=== PATIENT | female | born 1965 | race Caucasian/White ===

== ENCOUNTER → 2021-08-28 02:59 | Outpatient (CLI) | payer OTHER, SELFPAY ==
[2021-08-28 17:42] LABS: SARS-CoV-2 RNA PCR Negative
== END ==
PROVIDERS: PCP Internal Medicine; Visit Provider Internal Medicine
DX: R05.9 Cough, unspecified (principal); Z20.822 Contact with and (suspected) exposure to COVID-19
CPT/HCPCS: C9803; U0003; U0005

== ENCOUNTER → 2022-05-04 10:41 | Outpatient (CLI) | payer OTHER, SELFPAY ==
--- NOTE | ~2022-05-04 | XR_ITS ---
EXAMINATION: XR chest 2V DATE: 05/04/2022 11:02 INDICATION: Cough TECHNIQUE: PA and lateral views of the chest are obtained. COMPARISON: 11/11/2019 FINDINGS: The lungs are free of acute opacities. There is no pleural effusion or pneumothorax. The ca rdiomediastinal silhouette is normal. There is mild thoracic spondylosis. Surgical clips in the right upper quadrant are likely from prior cholecystectomy. IMPRESSION: 1. No acute cardiopulmonary abnormality. Reviewed, dictated and finalized at location A.
== END ==
PROVIDERS: PCP Internal Medicine; Visit Provider Internal Medicine
DX: R05.9 Cough, unspecified (principal)
CPT/HCPCS: 71046

== ENCOUNTER → 2022-11-16 15:36 | Outpatient (CLI) | payer OTHER, SELFPAY ==
--- NOTE | ~2022-11-16 | XR_ITS ---
EXAMINATION: XR sacrum coccyx min 2V DATE: 11/16/2022 16:02 INDICATION: Sacrococcygeal disorders, not elsewhere classified. TECHNIQUE: 3 views of the sacrum and coccyx were obtained. COMPARISON: Radiographs 05/25/2014 FINDINGS: Bone alignment is normal. No fracture. The sacroiliac joints are normal. IMPRESSION: 1. Normal sacrum and coccyx. Reviewed, dictated and finalized at location A. [employer]IC[employer]
== END ==
PROVIDERS: PCP Internal Medicine; Visit Provider Internal Medicine
DX: M53.3 Sacrococcygeal disorders, not elsewhere classified (principal)
CPT/HCPCS: 72220

== ENCOUNTER 2023-01-11 00:44 | Day surgery (SDC) | payer OTHER, SELFPAY ==
[2022-12-25 14:57] VITALS: BMI 29.3
[2023-01-11 07:10] VITALS: BP 129/70; PULSE 66; RESP 16; TEMP 36; O2SAT 100; BMI 29.7
[2023-01-11] MEDS: LACTATED RINGERS 1,000 ML 150 ML IV CONT (07:21)
--- NOTE | 2023-01-11 07:50 | WPDANESEPPF ---
Anes - Initial Pre Proc Eval Procedure: Operation Date: 01/11/23 08:30 Proposed Procedures p Screening Colonoscopy - Jake Mckinnon MD Date/Time: 01/11/23 07:50 Surgeon: Jake Mckinnon MD Pre Op Diagnosis: neoplasm screening Patient Data Age: 57 Gender: F Height: 1.65 m Weight: 80.9 kg Last Vital Signs Temp 36.0 C L 01/11/23 07:10 Pulse 66 01/11/23 07:10 Resp 16 01/11/23 07:10 BP 129/70 01/11/23 07:10 Pulse Ox 100 01/11/23 07:10 O2 Del Method Room Air 01/11/23 07:10 Allergies Allergy/AdvReac Type Severity Reaction Status Date / Time No Known Allergies Allergy Verified 01/11/23 07:07 Home Medications Medication Instructions Recorded Confirmed Type cetirizine 10 mg tablet (Zyrtec) 10 mg PO DAILY PRN Allergy Symptoms 11/21/21 01/11/23 History fluticasone propionate 50 1 spray intranasal DAILY 11/21/21 01/11/23 History mcg/actuation nasal spray,suspension (Flonase Allergy Relief) atenolol 50 mg tablet 50 mg PO DAILY #90 tabs 08/27/22 01/11/23 Rx atorvastatin 20 mg tablet 20 mg PO DAILY #90 tabs 11/05/22 01/11/23 Rx aspirin 81 mg tablet,delayed 81 mg PO DAILY 11/16/22 01/11/23 History release cholecalciferol (vitamin D3) 10 10 mcg PO DAILY 11/16/22 01/11/23 History mcg (400 unit) capsule omega-3 fatty acids 1,000 mg 1,000 mg PO DAILY 11/16/22 01/11/23 History capsule rhubarb root extract 4 mg tablet 4 mg PO DAILY 11/16/22 01/11/23 History (Estroven Complete Menopause Relief) codeine 10 mg-guaifenesin 100 mg/5 10 ml PO QHS PRN cough #120 mL 11/17/22 01/11/23 Rx mL oral liquid Patient hx anesthesia problems: none Family hx anesthesia problems: none Results Review: All pre-operative results and documents have been reviewed as part of the pre-operative evaluation. [facility] Past Medical History Medical History (Updated 01/11/23 @ 07:51 by Fnin Rizzo MD) Biceps muscle tear Cigarette smoker Essential (primary) hypertension Hyperlipidemia Obesity (BMI 30.0-34.9) Surgical History Surgical History S/P right rotator cuff repair (~03/2020) Family History Family History Sibling Hypertension Father Acute myocardial infarction, Onset Age: 59 Patient's father is Other Family history of cardiovascular disease Social History Social History (Updated 11/16/22 @ 15:02 by Tessie Barger CMA) Smoking packs per day: 0.5 Smoking cigarettes per day: 10.0 Years smoked: 30 Smoking pack-years: 15.00 Smoking status: Current every day smoker Tobacco type: cigarettes Second hand tobacco smoke exposure: Yes Alcohol intake: current Alcohol use details: about 2 drinks per month Substance use: never Substance use type: does not use Lack of Transportation: No Lack of Food: Never True Current Housing: I Have Housing Concerned About Future Housing: No Difficulty Paying Gas/Electric Bills: No Difficulty Paying for Meds: No Currently Unemployed: No Education: Trade/Vocational Certificate Difficulty w/ Childcare or Family Care: No Living arrangements: with family Spiritual care concerns: No Anes - Eval Final PreProcedure Day of Procedure 01/11/23 07:50 Patient weight: obese Heart: regular rate and rhythm Lungs: clear to auscultation and normal air movement Airway: Mallampati scale class II Neurological: alert and oriented Last oral intake: >/= 8 hours ASA classification: III Emergent: no Anesthetic plan: proceed Anesthesia type and monitoring: general GIVS Results Review: All pre-operative results and documents have been reviewed as part of the pre-operative evaluation. Informed Consent: The patient's anesthetic plan and its attendant risks and benefits were discussed with the patient/family/POA. Questions were solicited and answers provided to the satisfaction of
--- NOTE | 2023-01-11 07:58 | PM.HPGS ---
History of Present Illness History of Present Illness Consent: Risks, benefits, and alternatives have been discussed and questions answered. Patient agrees to proceed with procedure. Chief complaint: neoplasm screening Narrative: Rocio Sewell is a 57 year old female Presents for screening colonoscopy. Patient's current weight appetite and bowel movements are normal. Patient denies abdominal pain. She has had no bleeding. Family history noncontributory. Previous colonoscopy 2017 was unremarkable. Review of Systems Review of Systems: Review of systems noncontributory. [facility] Past Medical History Medical History (Updated 01/11/23 @ 07:59 by Jake Mckinnon MD) Biceps muscle tear Cigarette smoker Essential (primary) hypertension Hyperlipidemia Obesity (BMI 30.0-34.9) Surgical History Surgical History S/P right rotator cuff repair (~03/2020) Family History Family History Sibling Hypertension Father Acute myocardial infarction, Onset Age: 59 Patient's father is Other Family history of cardiovascular disease Social History Social History (Updated 11/16/22 @ 15:02 by Tessie Barger CMA) Smoking packs per day: 0.5 Smoking cigarettes per day: 10.0 Years smoked: 30 Smoking pack-years: 15.00 Smoking status: Current every day smoker Tobacco type: cigarettes Second hand tobacco smoke exposure: Yes Alcohol intake: current Alcohol use details: about 2 drinks per month Substance use: never Substance use type: does not use Lack of Transportation: No Lack of Food: Never True Current Housing: I Have Housing Concerned About Future Housing: No Difficulty Paying Gas/Electric Bills: No Difficulty Paying for Meds: No Currently Unemployed: No Education: Trade/Vocational Certificate Difficulty w/ Childcare or Family Care: No Living arrangements: with family Spiritual care concerns: No Meds Home Medications and Allergies Home Medications Medication Instructions Recorded Confirmed Type cetirizine 10 mg tablet (Zyrtec) 10 mg PO DAILY PRN Allergy Symptoms 11/21/21 01/11/23 History fluticasone propionate 50 1 spray intranasal DAILY 11/21/21 01/11/23 History mcg/actuation nasal spray,suspension (Flonase Allergy Relief) atenolol 50 mg tablet 50 mg PO DAILY #90 tabs 08/27/22 01/11/23 Rx atorvastatin 20 mg tablet 20 mg PO DAILY #90 tabs 11/05/22 01/11/23 Rx aspirin 81 mg tablet,delayed 81 mg PO DAILY 11/16/22 01/11/23 History release cholecalciferol (vitamin D3) 10 10 mcg PO DAILY 11/16/22 01/11/23 History mcg (400 unit) capsule omega-3 fatty acids 1,000 mg 1,000 mg PO DAILY 11/16/22 01/11/23 History capsule rhubarb root extract 4 mg tablet 4 mg PO DAILY 11/16/22 01/11/23 History (Estroven Complete Menopause Relief) codeine 10 mg-guaifenesin 100 mg/5 10 ml PO QHS PRN cough #120 mL 11/17/22 01/11/23 Rx mL oral liquid Allergies Allergy/AdvReac Type Severity Reaction Status Date / Time No Known Allergies Allergy Verified 01/11/23 07:07 Vital Signs Vital Signs - 24 hr 01/11/23 07:10 Temperature 96.8 F L Pulse Rate 66 Respiratory Rate 16 Blood Pressure 129/70 Pulse Oximetry 100 Oxygen Delivery Room Air Exam Narrative: Physical exam reveals patient to be alert. Vital signs stable. HEENT exam is unremarkable. Patient is anicteric. Lungs are clear to auscultation and percussion. Heart is without murmur or extra sounds. Abdomen bowel sounds are present soft nontender with no organomegaly. Digital external rectal exam is normal. Assessment and Plan Assessment and plan (1) Encounter for screening colonoscopy: Code(s): Z12.11 - Encounter for screening for malignant neoplasm of colon Status: Acute Assessment and Plan: Patient presents today for screening colonosco
[2023-01-11 08:44] VITALS: BP 106/69; PULSE 65; RESP 23; O2SAT 100
[2023-01-11 08:54] VITALS: BP 113/67; PULSE 64; RESP 19; O2SAT 100
[2023-01-11 09:04] VITALS: BP 123/80; PULSE 60; RESP 18; O2SAT 100
== END 2023-01-11 09:09 | disposition home or self-care (01) ==
PROVIDERS: PCP Internal Medicine; Visit Provider Internal Medicine Gastroenterology
PROC: 0DJD8ZZ Inspection of Lower Intestinal Tract, Via Natural or Artificial Opening Endoscopic (ICD-10-PCS; CPT 45378; principal; 2023-01-11 08:30)
DX: Z12.11 Encounter for screening for malignant neoplasm of colon (principal); K64.8 Other hemorrhoids; I10 Essential (primary) hypertension; E78.5 Hyperlipidemia, unspecified; F17.210 Nicotine dependence, cigarettes, uncomplicated; E66.9 Obesity, unspecified; Z68.29 Body mass index [BMI] 29.0-29.9, adult; Z79.82 Long term (current) use of aspirin
CPT/HCPCS: 45378; J2704; J7120

== ENCOUNTER → 2023-07-06 14:24 | Outpatient (CLI) | payer OTHER, SELFPAY ==
--- NOTE | ~2023-07-06 | XR_ITS ---
XR lumbar spine 2-3V DATE: 07/06/2023 14:46 INDICATION: Back pain TECHNIQUE: AP, lateral, coned lateral lumbosacral views COMPARISON: 05/14/2021 lumbar spine FINDINGS: There is moderate loss of disc space at L5-S1, relatively stable since 05/14/2021. Osteopenia. No fracture or dislocation or bone destruction. The included lower thoracic and lumbar pedicles are i ntact. Sacroiliac joints are normal. Status post cholecystectomy. IMPRESSION: Relatively stable moderate loss of height at L5-S1 since 05/14/2021 Reviewed, dictated and finalized at location L.
== END ==
PROVIDERS: PCP Internal Medicine; Visit Provider Internal Medicine
DX: M54.9 Dorsalgia, unspecified (principal)
CPT/HCPCS: 72100

== ENCOUNTER 2023-08-06 12:42 | Outpatient (CLI) | payer OTHER, SELFPAY ==
--- NOTE | ~2023-08-06 | MR_ITS ---
EXAMINATION: MR pelvis wo/w con DATE: 08/06/2023 13:38 INDICATION: Sacroiliitis, not elsewhere classified. Low back pain. Right hip pain. Right foot numbnes s. TECHNIQUE: Magnetic resonance imaging (MRI) of the pelvis was performed without and with 17 mL MultiH ance intravenous contrast. COMPARISON: Sacrum and coccyx radiographs 11/16/2022 FINDINGS: Bone alignment is normal. L5-S1, there is moderately decreased disc height and a disc bulge with superimposed right subarticular zone extrusion with mass effect on right S1 nerve root in right lateral recess. There is mild osteoarthritis of the sacroiliac joints. IMPRESSION: 1. Mild osteoarthritis of the sacroiliac joints. No evidence of inflammatory arthropathy. 2.. Extrusion at L5-S1 with mass effect on right S1 nerve root. Reviewed, dictated and finalized at location E. IMPRESSION: 1. Mild osteoarthritis of the sacroiliac joints. No evidence of inflammatory ar thropathy. 2.. Extrusion at L5-S1 with mass effect on right S1 nerve root.
== END 2023-08-06 12:43 ==
LOC: MICIMG 12:47
PROVIDERS: PCP Internal Medicine; Visit Provider Internal Medicine
DX: M46.1 Sacroiliitis, not elsewhere classified (principal); M51.27 Other intervertebral disc displacement, lumbosacral region; M53.3 Sacrococcygeal disorders, not elsewhere classified
CPT/HCPCS: 72197; A9577

== ENCOUNTER 2023-08-20 08:11 | Outpatient (CLI) | payer OTHER, SELFPAY ==
--- NOTE | ~2023-08-20 | MR_ITS ---
MRI of the lumbar spine Clinical History: Back pain Technique: Axial T2-weighted images, and sagittal T1-weighted, T2-weighted, and T2 fat-sat images wer e acquired. Findings: There is no fracture or subluxation of the lumbar spine. Vertebral bodies maintain normal h eight and alignment. No suspicious bone marrow signal abnormality seen. At L1-L2, there is no disc bulge or herniation. No spinal canal stenosis or neural foraminal narrowin g. At L2-L3, there is minimal disc bulge with minimal facet arthropathy. No central canal stenosis or ne ural foraminal narrowing. At L3-L4, there is no disc bulge or herniation. There is minimal facet joint hypertrophy. No central canal stenosis or neural foraminal narrowing. At L4-L5, there is minimal disc bulge with mild to moderate facet arthropathy. No central canal steno sis or neural foraminal narrowing. At L5-S1, there is mild disc bulge with mild to moderate facet arthropathy. Suspected focal right par acentral disc extrusion. No central canal stenosis or definite neural foraminal narrowing. Paravertebral soft tissues are unremarkable. Impression: Suspected focal right paracentral disc extrusion at L5-S1, which may impinge the descending right-mateusz ed S1-S2 level nerve root. Additional minimal degenerative changes, as above. Reviewed, dictated and finalized at location . Impression: Suspected focal right paracentral disc extrusion at L5-S1, which may impinge th e descending right-sided S1-S2 level nerve root. Additional minimal degenerative changes, as above.
== END 2023-08-20 08:12 ==
LOC: GOSHIMG 08:17
PROVIDERS: Visit Provider Internal Medicine
DX: R20.0 Anesthesia of skin (principal); M51.27 Other intervertebral disc displacement, lumbosacral region
CPT/HCPCS: 72148

== ENCOUNTER → 2023-12-20 10:29 | Outpatient (CLI) | payer OTHER, SELFPAY ==
--- NOTE | ~2023-12-20 | XR_ITS ---
Clinical Indication: Cough PA and lateral views of the chest: Comparison: 05/04/2022 Findings: The lungs are clear, without evidence of focal consolidation or pleural effusion. Cardiome diastinal silhouette is within normal limits. Bones and soft tissues are unremarkable. Impression: Normal chest. Reviewed, dictated and finalized at [facility]. [employer] Impression: Normal chest.
== END ==
PROVIDERS: PCP Internal Medicine; Visit Provider Internal Medicine
DX: R05.9 Cough, unspecified (principal); I10 Essential (primary) hypertension; Z72.0 Tobacco use
CPT/HCPCS: 71046